=== PATIENT | female | born 1975 | race American Indian/Alaskan Native ===

== ENCOUNTER 2019-04-24 00:26 | Emergency (ER) | payer BC, OTHER ==
--- OUTSIDE RECORDS SUMMARY | 2019-04-24 00:29 | XMS REPORT ---
:1975 [facility] Address [address] [place] [address] Dr. Blandon [address] [place] [id number] Care Team Providers Name Role Phone Unavailable Unavailable Unavailable Problems This patient has no known problems. Allergies, Adverse Reactions, Alerts This patient has no known allergies or adverse reactions. Medications This patient has no known medications.
--- NOTE | 2019-04-24 01:48 | EDPHYS ---
Physician Documentation [facility] Name: Lexii Willingham Age: 43 yrs Sex: Female : 1975 Arrival Date: 04/24/2019 Time: 00:28 Bed 17 Private MD: Yehuda Freitas C ED Physician Lev Almanza HPI: 04/24 01:03 This 43 yrs old Other Female presents to ER via Ambulatory with complaints of Back Pain.pm1 01:03 The patient presents with pain that is acute. The symptoms are located in the left pm1 subscapular area and left mid back. Onset: The symptoms/episode began/occurred today. The pain does not radiate. Associated signs and symptoms: The patient has no apparent associated signs or symptoms, Pertinent negatives: chest pain, dysuria, fever, nausea, vomiting. The problem was sustained when lifting patient, with cloth bed pad with another nurse on the other side and felt pain to left back. Modifying factors: The patient symptoms are alleviated by rest, the patient symptoms are aggravated by moving left arm posteriorly. The patient has not experienced similar symptoms in the past. The patient has not recently seen a physician. 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 - Social history:: Smoking status: Patient/guardian denies using tobacco, Patient uses alcohol, Patient/guardian denies using street drugs. - Ebola Screening: : Patient negative for fever greater than or equal to 101.5 degrees Fahrenheit, and additional compatible Ebola Virus Disease symptoms Patient denies exposure to infectious person Patient denies travel to an Ebola-affected area in the 21 days before illness onset. ROS: 01:03 Constitutional: Negative for fever, chills, and weight loss, Eyes: Negative for injury, pm1 pain, redness, and discharge, ENT: Negative for injury, pain, and discharge, Neck: Negative for injury, pain, and swelling, Cardiovascular: Negative for chest pain, palpitations, and edema, Respiratory: Negative for shortness of breath, cough, wheezing, and pleuritic chest pain, Abdomen/GI: Negative for abdominal pain, nausea, vomiting, diarrhea, and constipation. 01:03 : Negative for injury, bleeding, discharge, and swelling, MS/Extremity: Negative for injury and deformity, Skin: Negative for injury, rash, and discoloration, Neuro: Negative for headache, weakness, numbness, tingling, and seizure. 01:03 Back: Positive for of the left subscapular area and left mid back, Pain. Exam: 01:03 Constitutional: This is a well developed, well nourished patient who is awake, alert, pm1 and in no acute distress. Head/Face: Normocephalic, atraumatic. Neck: Trachea midline, no thyromegaly or masses palpated, and no cervical lymphadenopathy. Supple, full range of motion without nuchal rigidity, or vertebral point tenderness. No Meningismus. Chest/axilla: Normal chest wall appearance and motion. Nontender with no deformity. No lesions are appreciated. Cardiovascular: Regular rate and rhythm with a normal S1 and S2. No gallops, murmurs, or rubs. Normal PMI, no JVD. No pulse deficits. Respiratory: Lungs have equal breath sounds bilaterally, clear to auscultation and percussion. No rales, rhonchi or wheezes noted. No increased work of breathing, no retractions or nasal flaring. Abdomen/GI: Soft, non-tender, with normal bowel sounds. No distension or tympany. No guarding or rebound. No evidence of tenderness throughout. 01:03 Skin: Warm, dry with normal turgor. Normal color with no rashes, no lesions, and no evidence of cellulitis. MS/ Extremity: Pulses equal, no cyanosis. Neurovascular intact. Full, normal range of motion. 01:03 Back: normal spinal alignment noted, vertebral tenderness, is not appreciated, muscle spasm, is appreciated in the left subscapular area and left mid back. 01:03 Neuro: Orientation: is normal, Mentation: is normal, Motor: is normal, moves all fours, Sensation: is normal, no obvious gross deficits. Vital Signs: 00:40 BP 144 / 91; Pulse 98; Resp 16; Temp 98; Pulse Ox 100% ; Weight 71.67 kg; Height 5 ft. rr5 2 in. (157.48 cm); Pain 5/10; 02:00 BP 130 / 85; Pulse 72; Resp 16; Temp 97.5; Pulse Ox 100% on R/A; rr5 00:40 Body Mass Index 28.90 (71.67 kg, 157.48 cm) rr5 MDM: 00:46 Patient medically screened. pm1 01:07 Data reviewed: vital signs. Data interpreted: Pulse oximetry: on room air is 100 %. pm1 Interpretation: normal. 01:46 Counseling: I had a detailed discussion with the patient and/or guardian regarding: the pm1 historical points, exam findings, and any diagnostic results supporting the discharge/admit diagnosis, radiology results, the need for outpatient follow up, to return to the emergency department if symptoms worsen or persist or if there are any questions or concerns that arise at home. 04/24 00:52 Order name: Spine Thoracic Ap/Lat XRAY pm1 Administered Medications: No medications were administered Disposition: 04/24/19 01:47 Discharged to Home. Impression: Unspecified injury of muscle and tendon of back wall of thorax. - Condition is Stable. - Discharge Instructions: Muscle Strain. - Prescriptions for Cyclobenzaprine 10 mg Oral Tablet - take 1 tablet by ORAL route every 8 hours As needed; 30 tablet. - Medication Reconciliation Form, Thank You Letter, Antibiotic Education, Prescription Opioid Use form. - Follow up: Emergency Department; When: As needed; Reason: Worsening of condition. Follow up: Private Physician; When: 2 - 3 days; Reason: Recheck today's complaints, Continuance of care, Re-evaluation by your physician. - Problem is new. - Symptoms have improved. Addendum: 04/26/2019 14:00 Co-signature as Attending Physician, Lev Almanza MD Available for consultation at p s1 all times . Signatures: Dispatcher [employer] EDMS Darwin Erwin, ROLLER STAKER ROLLER STAKER pm1 Lev Almanza MD MD ps1 Roque, Raymond RN RN rr5 Corrections: (The following items were deleted from the chart) 04/24 02:02 01:47 04/24/2019 01:47 Discharged to Home. Impression: Unspecified injury of muscle and rr5 tendon of back wall of thorax. Condition is Stable. Forms are Medication Reconciliation Form, Thank You Letter, Antibiotic Education, Prescription Opioid Use. Follow up: Emergency Department; When: As needed; Reason: Worsening of condition. Follow up: Private Physician; When: 2 - 3 days; Reason: Recheck today's complaints, Continuance of care, Re-evaluation by your physician. Problem is new. Symptoms have improved. pm1
--- NOTE | 2019-04-24 01:48 | ER ---
Nurse's Notes [facility] Name: Lexii Willingham Age: 43 yrs Sex: Female : 1975 Arrival Date: 04/24/2019 Time: 00:28 Bed 17 Private MD: Yehuda Freitas C Diagnosis: Unspecified injury of muscle and tendon of back wall of thorax Presentation: 04/24 00:40 Presenting complaint: Patient states: after i lifted patient up on the floor I felt rr5 pain on my left shoulder blade. 00:40 Transition of care: patient was not received from another setting of care. Onset of rr5 symptoms was April 23, 2019 at 19:30. Risk Assessment: Do you want to hurt yourself or someone else? Patient reports no desire to harm self or others. Initial Sepsis Screen: Does the patient meet any 2 criteria? No. Patient's initial sepsis screen is negative. Does the patient have a suspected source of infection? No. Patient's initial sepsis screen is negative. Care prior to arrival: None. 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 - Social history:: Smoking status: Patient/guardian denies using tobacco, Patient uses alcohol, Patient/guardian denies using street drugs. - Ebola Screening: : Patient negative for fever greater than or equal to 101.5 degrees Fahrenheit, and additional compatible Ebola Virus Disease symptoms Patient denies exposure to infectious person Patient denies travel to an Ebola-affected area in the 21 days before illness onset. Screenin:10 Abuse screen: Denies threats or abuse. Denies injuries from another. Nutritional rr5 screening: No deficits noted. Tuberculosis screening: No symptoms or risk factors identified. Fall Risk None identified. Total Peralta Fall Scale indicates No Risk (0-24 pts). Assessment: 00:40 General: Appears in no apparent distress. comfortable, Behavior is calm, cooperative, rr5 appropriate for age. Pain: Complains of pain in left scapular area Pain does not radiate. Pain currently is 0 out of 10 on a pain scale. at worst was 5 out of 10 on a pain scale. Quality of pain is described as aching, Pain began suddenly, Is intermittent. 00:40 Neuro: Level of Consciousness is awake, alert, obeys commands, Oriented to person, rr5 place, time, situation, Appropriate for age. Cardiovascular: Capillary refill < 3 seconds Patient's skin is warm and dry. Respiratory: Airway is patent Respiratory effort is even, unlabored, Respiratory pattern is regular, symmetrical. GI: No signs and/or symptoms were reported involving the gastrointestinal system. : No deficits noted. EENT: No signs and/or symptoms were reported regarding the EENT system. Derm: Skin is intact, Skin temperature is warm. Musculoskeletal: Capillary refill < 3 seconds, Range of motion: intact in all extremities, Reports pain in left scapular area. 00:55 Reassessment: went for xray via whelchair. rr5 00:55 Reassessment: Patient appears in no apparent distress at this time. Patient is alert, rr5 oriented x 3, equal unlabored respirations, skin warm/dry/pink. 02:00 Reassessment: Patient appears in no apparent distress at this time. Patient is alert, rr5 oriented x 3, equal unlabored respirations, skin warm/dry/pink. discharge instruction given and explained without complaints made. Patient states feeling better. Patient states symptoms have improved. Vital Signs: 00:40 BP 144 / 91; Pulse 98; Resp 16; Temp 98; Pulse Ox 100% ; Weight 71.67 kg; Height 5 ft. rr5 2 in. (157.48 cm); Pain 5/10; 02:00 BP 130 / 85; Pulse 72; Resp 16; Temp 97.5; Pulse Ox 100% on R/A; rr5 00:40 Body Mass Index 28.90 (71.67 kg, 157.48 cm) rr5 ED Course: 00:28 Patient arrived in ED. ds1 00:29 Yehuda Freitas MD is Private Physician. ds1 00:40 Arm band placed on. rr5 00:40 Patient has correct armband on for positive identification. Bed in low position. Call rr5 light in reach. 00:40 No provider procedures requiring assistance completed. Patient did not have IV access rr5 during this emergency room visit. 00:41 Inder Parr, RN is Primary Nurse. rr5 00:43 Triage completed. rr5 00:45 Darwin Erwin NP is PHCP. pm1 00:45 Lev Almanza MD is Attending Physician. pm1 01:11 Spine Thoracic Ap/Lat XRAY In Process Unspecified. EDMS Administered Medications: No medications were administered Outcome: 01:47 Discharge ordered by . pm1 02:00 Discharged to home ambulatory. rr5 02:00 Condition: stable 02:00 Discharge instructions given to patient, Instructed on discharge instructions, follow up and referral plans. medication usage, Demonstrated understanding of instructions, follow-up care, medications, Prescriptions given X 1. 02:02 Patient left the ED. rr5 Signatures: Dispatcher [employer] EDMS Lalitha Alcantara ds1 Darwin Erwin NP ORE MINER pm1 Inder Parr, RN RN rr5
[2019-04-24 04:01] VITALS: BP 130/85; TEMP 97.5; O2SAT 100
--- NOTE | 2019-04-24 08:41 | RAD REPORT ---
EXAM DESCRIPTION: RAD - Thoracic Spine Ap/Lat - 04/24/2019 1:10 am CLINICAL HISTORY: Back pain FINDINGS: The alignment of the thoracic spine is satisfactory. No fracture is seen. Bones appear somewhat osteoporotic. The heart may be enlarged
== END 2019-04-24 02:02 | disposition home or self-care (01) ==
LOC: ER 00:26
DX: S29.9XXA Unspecified injury of thorax, initial encounter (principal); S21.202A Unspecified open wound of left back wall of thorax without penetration into thoracic cavity, initial encounter; X50.9XXA Other and unspecified overexertion or strenuous movements or postures, initial encounter; Y93.89 Activity, other specified; Y92.230 Patient room in hospital as the place of occurrence of the external cause; I10 Essential (primary) hypertension
CPT/HCPCS: 72070; 99283